=== PATIENT | male | born 1960 | race Caucasian/White ===

== ENCOUNTER 2016-09-17 07:14 | Emergency (ER) | payer BC ==
[2016-09-17 08:26] VITALS: BP 150/96
--- NOTE | 2016-09-17 08:30 | EDM.PDOC ---
ED HPI GENERAL MEDICAL PROBLEM - General Chief Complaint: Allergic Reaction Stated Complaint: SWELLING IN FACE Time Seen by Provider: 09/17/16 08:07 Source of Information: Reports: Patient History Limitations: Reports: No Limitations - History of Present Illness INITIAL COMMENTS - FREE TEXT/NARRATIVE: This gentleman comes in complaining of an allergic reaction. He said at the end of August his blood pressure medications were changed and I believe that was because of an allergic reaction. His diuretic was stopped. 2 days ago he had a little bit of swelling of his lower lip. Yesterday there was more lip swelling and last night his upper lip face and extremities began to swell. He also had a lot of itching which began in his fingers. His skin over the whole body is red. He's taking and a drill 50 mg about 4 times a day. He denies any kind of insect bites or exposure to any kind of chemicals or plants and so forth. He says he is a dark skinned individual but definitely not red. He has an EpiPen which he has not used. He denies any shortness of breath or difficulty swallowing or speaking - Related Data Allergies Allergy/AdvReac Type Severity Reaction Status Date / Time erythromycin base Allergy Anaphylactic Verified 09/17/16 07:42 Shock Home Meds: Home Meds EPINEPHrine [Epinephrine] 1 injection SQ ONETIME PRN 09/17/16 [History] Lisinopril [Prinivil] 1 tab PO DAILY 09/17/16 [History] Metoprolol Succinate 2 tab PO DAILY 09/17/16 [History] amLODIPine [Norvasc] 1 tab PO DAILY 09/17/16 [History] Past Medical History Cardiovascular History: Reports: Hypertension Dermatologic History: Reports: Psoriasis Social & Family History - Tobacco Use Smoking Status *Q: Former Smoker Years of Tobacco use: 20 Used Tobacco, but Quit: Yes Month Tobacco Last Used: FEBRUARY Second Hand Smoke Exposure: Yes - Caffeine Use Caffeine Use: Reports: None - Recreational Drug Use Recreational Drug Use: No ED ROS ALLERGIC REACTION - Review of Systems Review Of Systems: ROS reveals no pertinent complaints other than HPI. ED EXAM GENERAL NO PERIP PULSE - Physical Exam Exam: See Below Exam Limited By: No Limitations General Appearance: Alert, WD/WN, No Apparent Distress Eye Exam: Bilateral Eye: Normal Inspection Ears: Normal External Exam Nose: Normal Inspection Throat/Mouth: Normal Oropharynx, Normal Voice, No Airway Compromise, Other ( There is mild swelling of the upper and lower lips) Head: Atraumatic, Other (There is some mild generalized facial swelling) Neck: Normal Inspection Respiratory/Chest: Lungs Clear (Lungs are completely clear with normal air movement) Cardiovascular: Regular Rate, Rhythm, No Murmur GI/Abdominal: Non-Tender Extremities: Redness, Other (There is mild swelling of the hands) Neurological: Alert, Oriented, Normal Cognition Skin Exam: Other (He is deeply tanned however there appears to be generalized erythema. There is no rash or her other urticaria-like lesions.) Course - Vital Signs Last Recorded V/S: Last Vital Signs Temp 36.6 C 09/17/16 08:26 Pulse 87 09/17/16 08:26 Resp 16 09/17/16 08:26 BP 150/96 H 09/17/16 08:26 Pulse Ox 96 09/17/16 08:26 - Re-Assessments/Exams Free Text/Narrative Re-Assessment/Exam: 09/17/16 08:37 I explained that most likely he is reacting to lisinopril even though he has been taking it for a long time. I will put him on a steroid have him continue Benadryl and an H1 sherrie and one of the long acting antihistamines. Patient stopped the lisinopril. His blood pressure was in the 150/190 range when it was rechecked. He should continue the metoprolol and he'll contact his doctor tomorrow to discuss the lisinopril. He's aware that if he gets worse he should return to the ER and he does have the EpiPen available if he gets into trouble Departure - Departure Time of Disposition: 08:23 Disposition: Home, Self-Care 01 Condition: Fair Clinical Impression: Acute allergic reaction - Discharge Information Referrals: PCP,None [Primary Care Provider] - Forms: ED Department Discharge Additional Instructions: Take methylprednisolone as directed on the package. This is similar to prednisone and is very similar to the corticosteroid that is made in your adrenal glands. Continue taking Benadryl 50 mg about every 6 hours or 4 times per day. This will cause sedation and may impair driving. You may also take one of the nonsedating antihistamines such as Claritin or Loren or Zyrtec. Avoid the "D" formulations such as Claritin-D and so forth because these have a decongestant added which can raise your blood pressure. The acid reducing medications such as Tagamet, Pepcid or Zantac or actually a type of antihistamine which may also help. You may take one of them in addition to the Benadryl as per package instructions. Prilosec or omeprazole or Prevacid are not antihistamines and will not help. Don't take anymore of the lisinopril. Even though you have been taking it for a long time lisinopril and that whole class of medications (TEODORO inhibitors) are notorious for causing allergic reactions which you can develop at any time. Continue all of your other blood pressure medicines. Talk to your tomorrow morning about the reactions and the lisinopril.
== END 2016-09-17 08:48 | disposition home or self-care (01) ==
LOC: JP.ED 07:14
DX: T78.40XA Allergy, unspecified, initial encounter (principal); R22.0 Localized swelling, mass and lump, head; I10 Essential (primary) hypertension; Z79.899 Other long term (current) drug therapy; Z87.891 Personal history of nicotine dependence; Z88.1 Allergy status to other antibiotic agents
CPT/HCPCS: 99283